=== PATIENT | male | born 1995 | race African-American/Black ===

== ENCOUNTER 2017-01-06 16:55 | Emergency (ER) | payer OTHER ==
[2017-01-06] MEDS ORDERED: traMADol 50 MG TAB As Ordered ONE (17:59)
--- NOTE | 2017-01-06 18:04 | REP ---
CT of the brain without I IV contrast: There is no subdural or epidural hematoma. There is no hemorrhage, edema, mass effect or midline shift. Ventricles are normal size and midline. The cortical stripe is unremarkable. The visualized paranasal sinuses and mastoid air cells are clear. Impression: Essentially negative CT study of the brain. Signed by Shreyas You MD 01/06/2017 05:56 P
--- NOTE | 2017-01-06 18:06 | REP ---
CT of the cervical spine: There are no comparisons. Axial images are acquired helical scanning in the reformatted sagittal and coronal projections. The skull base, C1-C2 are unremarkable. Vertebral body heights, interspacing alignment are normal. The facets are normally aligned. Prevertebral soft tissues are normal. There are no posterior element fractures. Impression: Essentially negative CT study of the cervical spine. Signed by Shreyas You MD 01/06/2017 05:58 P
--- NOTE | 2017-01-06 18:19 | EDDOCDS ---
Physician Documentation [facility] Name: Surjit Spencer Age: 21 yrs Sex: Male : 1995 Arrival Date: 01/06/2017 Time: 16:55 Bed 10 Private MD: [facility] [place] Disposition: 01/06/17 18:01 Discharged to Home/Self Care. Impression: Concussion without loss of consciousness - Grade I, Contusion of unspecified part of head. - Condition is Stable. - Medication Reconciliation, Local Pharmacy Hours form. - Follow up: [facility] [place]; When: 1 - 2 days; Reason: Recheck today's complaints. - Problem is new. - Symptoms are unchanged. - Notes: no work till cleared by physician. quiet, low stimuli environment recommended. Historical: - Allergies: no known allergies; - Home Meds: 1. none - PMHx: none; - PSHx: left knee surgery; - Social history: Smoking status: Patient states former smoker of tobacco. No barriers to communication noted, The patient speaks fluent Hebrew. - Family history: Not pertinent. - : The pt / caregiver states he / she is not on anticoagulants. Home medication list is obtained from the patient. - Exposure Risk Screening:: None identified. Vital Signs: 01/06 17:08 BP 152 / 81; Pulse 62; Resp 20; Temp 96.9(O); Pulse Ox 97% on R/A; Weight 77.11 kg / jc4 170 lbs; Height 5 ft. 11 in. (180.34 cm); Pain 7/10; 18:18 BP 159 / 69; Pulse 72; Resp 20; Temp 97.7(O); Pulse Ox 97% on R/A; Pain 5/10; jc4 17:08 Body Mass Index 23.71 (77.11 kg, 180.34 cm) jc4 MDM: 17:21 CT Head Without Contrast Ordered. EDMS 17:21 CT Spine,Cervical W/o Contrast Ordered. EDMS 17:50 Financial registration complete. ks16 17:58 traMADol 50 mg PO once ordered. cs11 Administered Medications: 18:01 Drug: traMADol 50 mg [tramadol 50 mg tablet (1 tabs)] Route: PO; ja5 18:16 Follow up: Response: Confirmed pt not driving.; Pt left department before re-evaluation jc4 is appropriate Signatures: Tianaer Valentina Beltrán, RN RN jc4 Jomar Virgen DO DO cs11 Perla Russo, Reg Reg ks16 Jody Patel,RN RN ja5 MTDD
--- NOTE | 2017-01-06 18:19 | EDDOCDS ---
Nurse's Notes [facility] Name: Surjit Spencer Age: 21 yrs Sex: Male : 1995 Arrival Date: 01/06/2017 Time: 16:55 Bed 10 Private MD: OHRufina TOLBERT Diagnosis: Concussion without loss of consciousness-Grade I;Contusion of unspecified part of head Presentation: 01/06 16:59 Presenting complaint: EMS states: Slipped on ice and struck his head on concrete at ja5 1600. Unknown LOC, he was found crying in pain A&O x2. EMS found patient A&O x4. Patient has a headache to the back of his head. Suicide/Homicide risk assessment- the patient denies having any suicidal and/or homicidal ideations and does not present with any other emotional, behavioral or mental health complaints. 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 Transition of care: patient was not received from another setting of care. 16:59 Acuity: ZULAY Level 3 ja5 16:59 Method Of Arrival: Ambulance ja5 18:18 Adult Sepsis Screening: The patient does not have new or worsening altered mentation. jc4 Patient's respiratory rate is less than 22. Systolic blood pressure is greater than 100. Patient has a qSOFA score of 0- Negative Sepsis Screen. Triage Assessment: 17:06 General: Appears in no apparent distress, Behavior is appropriate for age, cooperative. ja5 Pain: Location: left parietal area Pain currently is 7 out of 10 on a pain scale. Pt Declines HIV testing. Neurological: Level of Consciousness is awake, alert, Oriented to person, place, time, Speech is normal. Cardiovascular:. Cardiovascular: Capillary refill < 3 seconds Heart tones S1 S2 present. Respiratory: Airway is patent Respiratory effort is even, unlabored, Breath sounds are clear bilaterally. Derm: Skin is pink, warm & dry. Musculoskeletal: Circulation, motion, and sensation intact. Injury Description: swelling to back of head from stated injury. Historical: - Allergies: no known allergies; - Home Meds: 1. none - PMHx: none; - PSHx: left knee surgery; - Social history: Smoking status: Patient states former smoker of tobacco. No barriers to communication noted, The patient speaks fluent Saudi [place]. - Family history: Not pertinent. - : The pt / caregiver states he / she is not on anticoagulants. Home medication list is obtained from the patient. - Exposure Risk Screening:: None identified. Screenin:12 Screening information is obtained from the patient. Fall risk: No risks identified. ja5 Assistance ADL's: requires no assistance with activities of daily living. Abuse/DV Screen: The patient / caregiver reports he/she is: not in a situation that causes fear, pain or injury. Nutritional screening: On no prescribed diet. Advance Directives: Currently, there is no health care proxy. There is no active DNR order. There is no living will. There is no Power of Library Circulation Technician. home support is adequate. Assessment: 17:13 General: Appears in no apparent distress, Behavior is appropriate for age, cooperative. ja5 Pain: Location: left parietal area Pain currently is 7 out of 10 on a pain scale. Neurological: Level of Consciousness is awake, alert, Oriented to person, place, time, Speech is normal. Cardiovascular: Capillary refill Heart tones S1 S2 present. Respiratory: Airway is patent Breath sounds are clear bilaterally. Derm: Skin is pink, warm & dry. Musculoskeletal: Circulation, motion, and sensation intact. Injury Description: swelling to back of head from stated injury. 17:56 General: Patient awake, alert, oriented x3, speech is clear. He is sitting up in ja5 stretcher with visitors at bedside. Patient stated that he still has a headache pain is 5/10, provider notified.. 18:15 General: Appears in no apparent distress, Behavior is cooperative. Pain: Pain currently jc4 is 5 out of 10 on a pain scale. Neurological: Level of Consciousness is awake, alert, Oriented to person, place, time. Respiratory: Airway is patent Respiratory effort is even, unlabored, Respiratory pattern is regular, symmetrical. Derm: Skin is pink, warm & dry. Vital Signs: 17:08 BP 152 / 81; Pulse 62; Resp 20; Temp 96.9(O); Pulse Ox 97% on R/A; Weight 77.11 kg; jc4 Height 5 ft. 11 in. (180.34 cm); Pain 7/10; 18:18 BP 159 / 69; Pulse 72; Resp 20; Temp 97.7(O); Pulse Ox 97% on R/A; Pain 5/10; jc4 17:08 Body Mass Index 23.71 (77.11 kg, 180.34 cm) jc4 Vitals: 17:08 Log In Time N/A - ambulance arrival. 4 ED Course: 16:57 Patient visited by Alina Mandel Feather Sawyer. lbd 16:57 [facility] is Private Physician. lbd 16:57 Patient moved to Waiting lbd 16:58 Jody Patel,LESIA is Primary Nurse. lbd 16:58 Valentina Castillo, LESIA is Primary Nurse. lbd 16:58 Patient moved to 10 lbd 17:03 Triage Initiated ja5 17:07 Jomar Virgen DO is Attending Physician. cs11 17:07 Patient visited by Jomar Virgen DO. cs11 17:12 The patient / caregiver is instructed regarding the plan of care and ED course. ja5 17:58 Patient visited by Jody Patel RN. ja5 18:01 [facility] is Referral Physician. cs11 18:14 CT Head Without Contrast Returned. EDMS 18:14 CT Spine,Cervical W/o Contrast Returned. EDMS 18:17 No IV's were initiated during this patient's visit. No procedures done that require [facility] assistance. Administered Medications: 18:01 Drug: traMADol 50 mg [tramadol 50 mg tablet (1 tabs)] Route: PO; [facility] 18:16 Follow up: Response: Confirmed pt not driving.; Pt left department before re-evaluation jc4 is appropriate Order Results: Radiology Order: CT Head Without Contrast Test: CT Head Without Contrast REASON FOR EXAMINATION: Trauma; CT of the brain without I IV contrast:; ; There is no subdural or epidural hematoma. There is no hemorrhage, edema, mass; effect or midline shift. Ventricles are normal size and midline. The cortical; stripe is unremarkable.; ; The visualized paranasal sinuses and mastoid air cells are clear.; ; Impression:; ; Essentially negative CT study of the brain.; ; ; Signed by; Shreyas You MD 01/06/2017 05:56 P; Radiology Order: CT Spine,Cervical W/o Contrast Test: CT Spine,Cervical W/o Contrast REASON FOR EXAMINATION: Trauma; CT of the cervical spine:; ; There are no comparisons.; ; Axial images are acquired helical scanning in the reformatted sagittal and; coronal projections.; ; The skull base, C1-C2 are unremarkable.; ; Vertebral body heights, interspacing alignment are normal. The facets are; normally aligned. Prevertebral soft tissues are normal.; ; There are no posterior element fractures.; ; Impression:; ; Essentially negative CT study of the cervical spine.; ; ; Signed by; Shreyas You MD 01/06/2017 05:58 P; Outcome: 18:01 Discharge ordered by Provider. cs11 18:16 Discharge Assessment: Patient awake, alert and oriented x 3. No cognitive and/or jc4 functional deficits noted. Patient verbalized understanding of disposition instructions. patient administered narcotics - yes. Pt provided with safe discharge. The following High Risk Discharge criteria are identified: None. 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 Condition: stable. Discharge instructions given to patient, Instructed on discharge instructions, follow up and referral plans. Demonstrated understanding of instructions, Pt was receptive of discharge instructions/ teaching. CT Study completed. Property :Personal belongings accompany Pt. 18:18 Patient left the ED. jc4 Signatures: Dispatcher [employer] EDMS Alina Mandel, Feather Sawyer Unit lbd Valentina Castillo RN RN jc4 Jomar Virgen DO DO cs11 Jody Patel,RN RN ja5 [facility]
--- NOTE | 2017-01-08 19:19 | EDDOCDS ---
Physician Documentation [facility] Name: Surjit Spencer Age: 21 yrs Sex: Male : 1995 Arrival Date: 01/06/2017 Time: 16:55 Bed 10 Private MD: [facility] [place] Disposition: 01/06/17 18:01 Discharged to Home/Self Care. Impression: Concussion without loss of consciousness - Grade I, Contusion of unspecified part of head. - Condition is Stable. - Medication Reconciliation, Local Pharmacy Hours form. - Follow up: [facility] [place]; When: 1 - 2 days; Reason: Recheck today's complaints. - Problem is new. - Symptoms are unchanged. - Notes: no work till cleared by physician. quiet, low stimuli environment recommended. Historical: - Allergies: no known allergies; - Home Meds: 1. none - PMHx: none; - PSHx: left knee surgery; - Social history: Smoking status: Patient states former smoker of tobacco. No barriers to communication noted, The patient speaks fluent Greek. - Family history: Not pertinent. - : The pt / caregiver states he / she is not on anticoagulants. Home medication list is obtained from the patient. - Exposure Risk Screening:: None identified. Vital Signs: 01/06 17:08 BP 152 / 81; Pulse 62; Resp 20; Temp 96.9(O); Pulse Ox 97% on R/A; Weight 77.11 kg / jc4 170 lbs; Height 5 ft. 11 in. (180.34 cm); Pain 7/10; 18:18 BP 159 / 69; Pulse 72; Resp 20; Temp 97.7(O); Pulse Ox 97% on R/A; Pain 5/10; jc4 17:08 Body Mass Index 23.71 (77.11 kg, 180.34 cm) jc4 MDM: 17:21 CT Head Without Contrast Ordered. EDMS 17:21 CT Spine,Cervical W/o Contrast Ordered. EDMS 17:50 Financial registration complete. ks16 17:58 traMADol 50 mg PO once ordered. cs11 20:12 [facility] Payment Agreement was scanned into Yub and attached to record. ks16 01/07 11:28 T-Sheet-- Draft Copy was scanned into Yub and attached to record. gb 11:29 PCR was scanned into Yub and attached to record. gb Administered Medications: 01/06 18:01 Drug: traMADol 50 mg [tramadol 50 mg tablet (1 tabs)] Route: PO; ja5 18:16 Follow up: Response: Confirmed pt not driving.; Pt left department before re-evaluation jc4 is appropriate Signatures: Dispatcher [employer] EDMS Linda Reed, Reg Reg gb Valentina Castillo, RN RN jc4 Jomar Virgen, DO cs11 Perla Russo, Reg Reg ks16 Jody Patel,RN RN yvon5 The chart was reviewed and I authenticate all verbal orders and agree with the evaluation and treatment provided.Attachments: 20:12 [facility] Payment Agreement ks16 01/07 11:28 T-Sheet-- Draft Copy sam Chart Complete MTDD
--- NOTE | 2017-01-08 19:19 | EDDOCDS ---
Physician Documentation [facility] Name: Surjit Spencer Age: 21 yrs Sex: Male : 1995 Arrival Date: 01/06/2017 Time: 16:55 Bed 10 Private MD: [facility] [place] Disposition: 01/06/17 18:01 Discharged to Home/Self Care. Impression: Concussion without loss of consciousness - Grade I, Contusion of unspecified part of head. - Condition is Stable. - Medication Reconciliation, Local Pharmacy Hours form. - Follow up: [facility] [place]; When: 1 - 2 days; Reason: Recheck today's complaints. - Problem is new. - Symptoms are unchanged. - Notes: no work till cleared by physician. quiet, low stimuli environment recommended. Historical: - Allergies: no known allergies; - Home Meds: 1. none - PMHx: none; - PSHx: left knee surgery; - Social history: Smoking status: Patient states former smoker of tobacco. No barriers to communication noted, The patient speaks fluent Maltese. - Family history: Not pertinent. - : The pt / caregiver states he / she is not on anticoagulants. Home medication list is obtained from the patient. - Exposure Risk Screening:: None identified. Vital Signs: 01/06 17:08 BP 152 / 81; Pulse 62; Resp 20; Temp 96.9(O); Pulse Ox 97% on R/A; Weight 77.11 kg / jc4 170 lbs; Height 5 ft. 11 in. (180.34 cm); Pain 7/10; 18:18 BP 159 / 69; Pulse 72; Resp 20; Temp 97.7(O); Pulse Ox 97% on R/A; Pain 5/10; jc4 17:08 Body Mass Index 23.71 (77.11 kg, 180.34 cm) jc4 MDM: 17:21 CT Head Without Contrast Ordered. EDMS 17:21 CT Spine,Cervical W/o Contrast Ordered. EDMS 17:50 Financial registration complete. ks16 17:58 traMADol 50 mg PO once ordered. cs11 20:12 [facility] Payment Agreement was scanned into Reply[employer] and attached to record. ks16 01/07 11:28 T-Sheet-- Draft Copy was scanned into [employer] and attached to record. gb 11:29 PCR was scanned into [employer] and attached to record. gb Administered Medications: 01/06 18:01 Drug: traMADol 50 mg [tramadol 50 mg tablet (1 tabs)] Route: PO; ja5 18:16 Follow up: Response: Confirmed pt not driving.; Pt left department before re-evaluation jc4 is appropriate Signatures: Dispatcher [employer] EDMS Linda Reed, Reg Reg gb Valentina Castillo, RN RN jc4 Jomar Virgen, DO cs11 Perla Russo, Reg Reg ks16 Jody Patel,RN RN yvon5 The chart was reviewed and I authenticate all verbal orders and agree with the evaluation and treatment provided.Attachments: 20:12 [facility] Payment Agreement [email or web address] 01/07 11:28 T-Sheet-- Draft Copy sam Chart Complete MTDD
--- NOTE | 2017-01-08 19:19 | EDDOCDS ---
Nurse's Notes [facility] Name: Surjit Spencer Age: 21 yrs Sex: Male : 1995 Arrival Date: 01/06/2017 Time: 16:55 Bed 10 Private MD: NVRufina TOLBERT Diagnosis: Concussion without loss of consciousness-Grade I;Contusion of unspecified part of head Presentation: 01/06 16:59 Presenting complaint: EMS states: Slipped on ice and struck his head on concrete at ja5 1600. Unknown LOC, he was found crying in pain A&O x2. EMS found patient A&O x4. Patient has a headache to the back of his head. Suicide/Homicide risk assessment- the patient denies having any suicidal and/or homicidal ideations and does not present with any other emotional, behavioral or mental health complaints. 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 Transition of care: patient was not received from another setting of care. 16:59 Acuity: ZULAY Level 3 ja5 16:59 Method Of Arrival: Ambulance ja5 18:18 Adult Sepsis Screening: The patient does not have new or worsening altered mentation. jc4 Patient's respiratory rate is less than 22. Systolic blood pressure is greater than 100. Patient has a qSOFA score of 0- Negative Sepsis Screen. Triage Assessment: 17:06 General: Appears in no apparent distress, Behavior is appropriate for age, cooperative. ja5 Pain: Location: left parietal area Pain currently is 7 out of 10 on a pain scale. Pt Declines HIV testing. Neurological: Level of Consciousness is awake, alert, Oriented to person, place, time, Speech is normal. Cardiovascular:. Cardiovascular: Capillary refill < 3 seconds Heart tones S1 S2 present. Respiratory: Airway is patent Respiratory effort is even, unlabored, Breath sounds are clear bilaterally. Derm: Skin is pink, warm & dry. Musculoskeletal: Circulation, motion, and sensation intact. Injury Description: swelling to back of head from stated injury. Historical: - Allergies: no known allergies; - Home Meds: 1. none - PMHx: none; - PSHx: left knee surgery; - Social history: Smoking status: Patient states former smoker of tobacco. No barriers to communication noted, The patient speaks fluent Bangladeshi. - Family history: Not pertinent. - : The pt / caregiver states he / she is not on anticoagulants. Home medication list is obtained from the patient. - Exposure Risk Screening:: None identified. Screenin:12 Screening information is obtained from the patient. Fall risk: No risks identified. ja5 Assistance ADL's: requires no assistance with activities of daily living. Abuse/DV Screen: The patient / caregiver reports he/she is: not in a situation that causes fear, pain or injury. Nutritional screening: On no prescribed diet. Advance Directives: Currently, there is no health care proxy. There is no active DNR order. There is no living will. There is no Power of Brake Tester. home support is adequate. Assessment: 17:13 General: Appears in no apparent distress, Behavior is appropriate for age, cooperative. ja5 Pain: Location: left parietal area Pain currently is 7 out of 10 on a pain scale. Neurological: Level of Consciousness is awake, alert, Oriented to person, place, time, Speech is normal. Cardiovascular: Capillary refill Heart tones S1 S2 present. Respiratory: Airway is patent Breath sounds are clear bilaterally. Derm: Skin is pink, warm & dry. Musculoskeletal: Circulation, motion, and sensation intact. Injury Description: swelling to back of head from stated injury. 17:56 General: Patient awake, alert, oriented x3, speech is clear. He is sitting up in ja5 stretcher with visitors at bedside. Patient stated that he still has a headache pain is 5/10, provider notified.. 18:15 General: Appears in no apparent distress, Behavior is cooperative. Pain: Pain currently jc4 is 5 out of 10 on a pain scale. Neurological: Level of Consciousness is awake, alert, Oriented to person, place, time. Respiratory: Airway is patent Respiratory effort is even, unlabored, Respiratory pattern is regular, symmetrical. Derm: Skin is pink, warm & dry. Vital Signs: 17:08 BP 152 / 81; Pulse 62; Resp 20; Temp 96.9(O); Pulse Ox 97% on R/A; Weight 77.11 kg; jc4 Height 5 ft. 11 in. (180.34 cm); Pain 7/10; 18:18 BP 159 / 69; Pulse 72; Resp 20; Temp 97.7(O); Pulse Ox 97% on R/A; Pain 5/10; jc4 17:08 Body Mass Index 23.71 (77.11 kg, 180.34 cm) jc4 Vitals: 17:08 Log In Time N/A - ambulance arrival. jc4 ED Course: 16:57 Patient visited by Alina Mandel, Street Openings Inspector. lbd 16:57 [facility] is Private Physician. lbd 16:57 Patient moved to Waiting lbd 16:58 Jody Patel,LESIA is Primary Nurse. lbd 16:58 Valentina Castillo, LESIA is Primary Nurse. lbd 16:58 Patient moved to 10 lbd 17:03 Triage Initiated ja5 17:07 Jomar Virgen DO is Attending Physician. cs11 17:07 Patient visited by Jomar Virgen DO. cs11 17:12 The patient / caregiver is instructed regarding the plan of care and ED course. ja5 17:58 Patient visited by Jody Patel RN. ja5 18:01 [facility] is Referral Physician. cs11 18:14 CT Head Without Contrast Returned. EDMS 18:14 CT Spine,Cervical W/o Contrast Returned. EDMS 18:17 No IV's were initiated during this patient's visit. No procedures done that require [facility] assistance. 20:12 [facility] Payment Agreement was scanned into [employer] and attached to record. ks16 02 11:28 T-Sheet-- Draft Copy was scanned into [employer] and attached to record. gb 11:29 PCR was scanned into [employer] and attached to record. gb Administered Medications: 01/06 18:01 Drug: traMADol 50 mg [tramadol 50 mg tablet (1 tabs)] Route: PO; [facility] 18:16 Follow up: Response: Confirmed pt not driving.; Pt left department before re-evaluation jc4 is appropriate Order Results: Radiology Order: CT Head Without Contrast Test: CT Head Without Contrast REASON FOR EXAMINATION: Trauma; CT of the brain without I IV contrast:; ; There is no subdural or epidural hematoma. There is no hemorrhage, edema, mass; effect or midline shift. Ventricles are normal size and midline. The cortical; stripe is unremarkable.; ; The visualized paranasal sinuses and mastoid air cells are clear.; ; Impression:; ; Essentially negative CT study of the brain.; ; ; Signed by; Shreyas You MD 01/06/2017 05:56 P; Radiology Order: CT Spine,Cervical W/o Contrast Test: CT Spine,Cervical W/o Contrast REASON FOR EXAMINATION: Trauma; CT of the cervical spine:; ; There are no comparisons.; ; Axial images are acquired helical scanning in the reformatted sagittal and; coronal projections.; ; The skull base, C1-C2 are unremarkable.; ; Vertebral body heights, interspacing alignment are normal. The facets are; normally aligned. Prevertebral soft tissues are normal.; ; There are no posterior element fractures.; ; Impression:; ; Essentially negative CT study of the cervical spine.; ; ; Signed by; Shreyas You MD 01/06/2017 05:58 P; Outcome: 18:01 Discharge ordered by Provider. 11 18:16 Discharge Assessment: Patient awake, alert and oriented x 3. No cognitive and/or jc4 functional deficits noted. Patient verbalized understanding of disposition instructions. patient administered narcotics - yes. Pt provided with safe discharge. The following High Risk Discharge criteria are identified: None. 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 Condition: stable. Discharge instructions given to patient, Instructed on discharge instructions, follow up and referral plans. Demonstrated understanding of instructions, Pt was receptive of discharge instructions/ teaching. CT Study completed. Property :Personal belongings accompany Pt. 18:18 Patient left the ED. jc4 Signatures: Dispatcher [employer] EDMS Alina Mandel, Street Openings Inspector Unit lbd Linda Reed, Reg Reg gb Valentina Castillo, RN RN jc4 Jomar Virgen DO DO cs11 Perla Russo, Reg Reg ks16 Jody Patel,RN RN ja5 Chart Complete MTDD
== END 2017-01-06 18:18 | disposition home or self-care (01) ==
LOC: M ED 16:55
DX: S06.0X0A Concussion without loss of consciousness, initial encounter (principal); S00.93XA Contusion of unspecified part of head, initial encounter; W00.0XXA Fall on same level due to ice and snow, initial encounter; Y92.410 Unspecified street and highway as the place of occurrence of the external cause; Y93.01 Activity, walking, marching and hiking; Y99.8 Other external cause status; Z87.891 Personal history of nicotine dependence

== ENCOUNTER 2017-11-07 11:25 | Emergency (ER) | payer OTHER ==
[~2017-11-07] VITALS: Ht 177.8 cm; Wt 81.8 kg
[2017-11-07] MEDS ORDERED: BENA25TA10 PO (11:30)
[2017-11-07] MEDS ORDERED: KETOROLAC 30 MG/ML VIAL (J1885) IV ONE (12:45)
[2017-11-07] MEDS ORDERED: CLINDAMYCIN 900 MG in APPROPRIATE DILUENT 1 EA IV ONE (12:45)
[2017-11-07 13:31] LABS: BASO % 0.6 % (0.0-1.0); EOS # 0.2 10^3/uL (0.0-0.50); EOS % 2.1 % (0.0-3.0); IMMATURE GRANULOCYTE % 0.1 % (0-0); LYMPH # 2.4 10^3/uL (1.5-6.5); LYMPH % 33.7 % (24.0-44.0); MEAN CORPUSCULAR HGB CONC 35.7 g/dl (32.0-36.5); MEAN CORPUSCULAR VOLUME 86.8 fl (80.0-96.0); MONO # 0.8 10^3/uL (0.0-0.8); MONO % 10.8 % (0.0-5.0); NEUTROPHILS # 3.8 10^3/uL (1.8-7.7); NEUTROPHILS % 52.7 % (36.0-66.0); PLATELET COUNT, AUTOMATED 326 10^3/uL (150-450); RED CELL DISTRIBUTION WIDTH 11.5 % (11.5-14.5); WHITE BLOOD COUNT 7.1 10^3/uL (4.0-10.0)
[2017-11-07 13:56] LABS: ALBUMIN 4.4 GM/DL (3.2-5.2); ALBUMIN/GLOBULIN RATIO 1.29 (1.00-1.93); ALKALINE PHOSPHATASE 87 U/L (45-117); ALT/SGPT 19 U/L (12-78); ANION GAP 7 MEQ/L (8-16); AST/SGOT 11 U/L (7-37); BLOOD UREA NITROGEN 11 MG/DL (7-18); CALCIUM LEVEL 9.2 MG/DL (8.5-10.1); CARBON DIOXIDE LEVEL 30 MEQ/L (21-32); CHLORIDE LEVEL 102 MEQ/L (98-107); GLUCOSE, FASTING 82 MG/DL (70-105); POTASSIUM SERUM 4.3 MEQ/L (3.5-5.1); SODIUM LEVEL 139 MEQ/L (136-145); TOTAL PROTEIN 7.8 GM/DL (6.4-8.2)
[2017-11-07] MEDS ORDERED: ISOVUE-370 76% 100ML VIAL (Q9967) As Ordered ONE (14:05)
[2017-11-07] MEDS ORDERED: CLIN150C14 PO (14:52)
[2017-11-07] MEDS ORDERED: IBUP80TA PO (14:52)
[2017-11-07 14:59] VITALS: BP 115/72
--- NOTE | 2017-11-08 06:48 | REP ---
REASON: Cellulitis on the left. COMPARISON: None. There is mild left infraorbital soft tissue swelling. There is no preseptal or post-septal edema. The ocular globes are intact and the gaze is conjugant. The lenses are within normal limits. The conal and extraconal fat is normal bilaterally. The imaged extraocular muscles are intact as are the ocular nerves. There is no fracture. The imaged paranasal sinuses are clear. IMPRESSION: Slight left infraorbital soft tissue swelling. There is no discernible abscess at this time. Findings as described above. Signed by Ed Teague DO 11/08/2017 08:55 A
== END 2017-11-07 15:00 | disposition home or self-care (01) ==
LOC: M ED 11:25
DX: L03.213 Periorbital cellulitis (principal); J30.81 Allergic rhinitis due to animal (cat) (dog) hair and dander
CPT/HCPCS: 70481; 80053; 85025; 96365; 96366; 96375; 99283; J1885; Q9967

== ENCOUNTER 2017-11-08 12:04 | Emergency (ER) | payer OTHER ==
[~2017-11-08] VITALS: Ht 177.8 cm; Wt 81.8 kg
[~2017-11-08 12:04] MED LIST: BENA25TA10 PO; CLIN150C14 PO; IBUP80TA PO
[2017-11-08] MEDS ORDERED: CLINDAMYCIN 900 MG in APPROPRIATE DILUENT 1 EA IV ONE (13:00)
[2017-11-08] MEDS ORDERED: ALPRAZolam 0.25 MG TAB PO ONE (13:30)
[2017-11-08 14:19] VITALS: BP 115/58
== END 2017-11-08 14:30 | disposition home or self-care (01) ==
LOC: M ED 12:04
DX: H04.322 Acute dacryocystitis of left lacrimal passage (principal)

== ENCOUNTER 2018-05-23 10:43 | Emergency (ER) | payer OTHER ==
[2018-05-23] MEDS: NAPROXEN 250 MG TAB PO (11:10)
== END 2018-05-23 12:02 | disposition home or self-care (01) ==
LOC: M ED 10:43
DX: M25.561 Pain in right knee (principal); Z98.890 Other specified postprocedural states; Z91.048 Other nonmedicinal substance allergy status
CPT/HCPCS: 73564

== ENCOUNTER → 2018-06-21 | Outpatient (CLI) | payer OTHER ==
[2018-06-21 13:33] LABS: BASO # 0.1 10^3/uL (0.0-0.2); BASO % 0.9 % (0.0-1.0); EOS # 0.4 10^3/uL (0.0-0.50); EOS % 6.7 % (0.0-3.0); HEMATOCRIT 47.1 % (42.0-52.0); HEMOGLOBIN 16.1 g/dl (13.5-17.5); IMMATURE GRANULOCYTE % 0.4 % (0-3.0); LYMPH % 35.2 % (24.0-44.0); MEAN CORPUSCULAR HEMOGLOBIN 30.7 pg (27.0-33.0); MEAN CORPUSCULAR HGB CONC 34.2 g/dl (32.0-36.5); MEAN CORPUSCULAR VOLUME 89.9 fl (80.0-96.0); MONO # 0.6 10^3/uL (0.0-0.8); MONO % 11.6 % (0.0-5.0); NEUTROPHILS # 2.5 10^3/uL (1.8-7.7); NEUTROPHILS % 45.2 % (36.0-66.0); PLATELET COUNT, AUTOMATED 280 10^3/uL (150-450); RED BLOOD COUNT 5.24 10^6/uL (4.30-6.10); RED CELL DISTRIBUTION WIDTH 12.1 % (11.5-14.5); WHITE BLOOD COUNT 5.5 10^3/uL (4.0-10.0)
[2018-06-21 13:49] LABS: ANION GAP 9 MEQ/L (8-16); BLOOD UREA NITROGEN 12 MG/DL (7-18); CALCIUM LEVEL 9.4 MG/DL (8.5-10.1); CARBON DIOXIDE LEVEL 29 MEQ/L (21-32); CHLORIDE LEVEL 104 MEQ/L (98-107); CREATININE FOR GFR 1.02 MG/DL (0.70-1.30); GLOMERULAR FILTRATION RATE > 60.0 (>60); GLUCOSE, FASTING 95 MG/DL (70-100); POTASSIUM SERUM 4.2 MEQ/L (3.5-5.1); SODIUM LEVEL 142 MEQ/L (136-145)
[2018-06-21 14:30] LABS: SICKLE CELL SCREEN NEGATIVE (NEGATIVE)
== END ==
LOC: M SMT 08:30
DX: Z01.812 Encounter for preprocedural laboratory examination (principal); M20.12 Hallux valgus (acquired), left foot; M79.672 Pain in left foot
CPT/HCPCS: 80048

== ENCOUNTER 2018-06-25 08:29 | Day surgery (SDC) | payer OTHER ==
[2018-06-25] MEDS ORDERED: LR 1,000 ML IV ×2 (09:00→11:30)
[2018-06-25] MEDS: LR 1,000 ML IV (09:05)
[2018-06-25] MEDS ORDERED: ceFAZolin 2 GM/D5W 50 ML IV BAG (J0690 PER 500MG) As Ordered (09:12)
[2018-06-25] MEDS: BUPIVACAINE HCL 0.5% 30 ML VIAL As Ordered (10:28)
[2018-06-25] MEDS: LIDOCAINE 2% MDV 20 ML VIAL As Ordered (10:28)
[2018-06-25] MEDS ORDERED: MIDAZOLAM INJ 2 MG/2 ML VIAL (J2250) As Ordered (10:41)
[2018-06-25] MEDS ORDERED: KETAMINE HCL 200 MG/20 ML VIAL As Ordered (10:41)
[2018-06-25] MEDS ORDERED: PROPOFOL 200 MG/20 ML VIAL As Ordered (10:41)
[2018-06-25] MEDS ORDERED: fentaNYL 100 MCG/2 ML INJECTION (J3010) As Ordered (10:41)
[2018-06-25] MEDS ORDERED: ONDANSETRON 4MG/2ML VIAL (J2405) As Ordered (10:41)
[2018-06-25] MEDS ORDERED: LIDOCAINE 2% INJ 100 MG/5 ML SDV (FOR ANES.) As Ordered (10:41)
[2018-06-25] MEDS: BACITRACIN PWD 50,000 UNITS VIAL As Ordered (10:56)
[2018-06-25] MEDS: NEOSPORIN GU IRRIG 20 ML VIAL As Ordered (10:56)
[2018-06-25] MEDS: dexameTHASONE 4 MG/ML 1ML VIAL (J1100) As Ordered (10:57)
[2018-06-25] MEDS ORDERED: ONDANSETRON 4MG/2ML VIAL (J2405) IV (11:30)
[2018-06-25] MEDS ORDERED: fentaNYL 100 MCG/2 ML INJECTION (J3010) IV (11:30)
[2018-06-25] MEDS ORDERED: PERCOCET 5MG/325MG TAB PO (11:30)
== END 2018-06-25 12:50 | disposition home or self-care (01) ==
LOC: M SDC 08:29
DX: M20.12 Hallux valgus (acquired), left foot (principal)
CPT/HCPCS: 28296